=== PATIENT | female | born 1965 | race Caucasian/White ===

== ENCOUNTER 2018-10-09 09:02 | Emergency (ER) | payer OTHER, SELFPAY ==
[2018-10-09 09:04] VITALS: BP 145/82; PULSE 77; RESP 18; TEMP 36.3; O2SAT 100
--- NOTE | 2018-10-09 09:08 | ED_ITS ---
HPI - General Adult General Chief complaint: Wound/Laceration Stated complaint: Walked into glass wall,head wound Time Seen by Provider: 10/09/18 09:08 Source: patient Mode of arrival: ambulatory Limitations: no limitations History of Present Illness HPI narrative: 53-year-old female here for evaluation of a cut above her left eye. Just prior to arrival she walked into a glass window. She was wearing glasses. She thinks that the glasses cut her eye. She put ice on it prior to arrival. No other intervention. She is up-to-date on her tetanus. Related Data Allergies Allergy/AdvReac Type Severity Reaction Status Date / Time codeine Allergy Verified 10/09/18 09:15 amoxicillin [From Augmentin] AdvReac Intermediate Gastrointestinal Verified 10/09/18 09:15 Upset clavulanic acid AdvReac Intermediate Gastrointestinal Verified 10/09/18 09:15 [From Augmentin] Upset Review of Systems Constitutional Denies fever(s) and Denies headache(s) Eyes Denies blurry vision, Denies change in vision, Denies diplopia, Denies dry eyes and Denies eye pain ENT Ears, Nose, Mouth, and Throat: Denies headache(s) and Denies neck pain Respiratory Denies cough Musculoskeletal Denies neck pain Integumentary/Breasts Comments: 2 cm laceration above the left Neurologic Denies behavioral changes and Denies headache(s) Psychiatric Denies behavioral changes Hematologic/Lymphatic Denies easy bleeding and Denies easy bruising PFSH Medical History HTN (hypertension) (Acute) Social History lives independently: Yes Social History lives independently: Yes Exam Initial Vital Signs Initial Vital Signs: Vital Signs Temperature 97.4 F L 10/09/18 09:04 Pulse Rate 77 10/09/18 09:04 Respiratory Rate 18 10/09/18 09:04 Blood Pressure 145/82 H 10/09/18 09:04 Pulse Oximetry 100 10/09/18 09:04 Const General: cooperative, healthy appearing, comfortable, well developed, well g roomed and No acute distress Orientation: alert, awake and oriented x3 HENMT Head: other (2 cm laceration above the left) Nose: external nose normal Face and sinus: normal facial exam Mouth: oral mucosae normal Eyes Pupils: PERRL EOM: EOM intact bilaterally Resp Effort & Inspection: normal respiratory effort Skin Other: 2 cm laceration of the left eye. No active bleeding. Neuro General: alert, awake and oriented x3 Cognition: normal cognition Speech: speech normal Extrem General: normal to inspection and capillary refill normal Psych Appearance: grossly normal and well kempt Procedures Laceration Repair Laceration 1: Site: face Side (If applicable): left Size (cm): 2 Description: linear Depth: simple, single layer Local Anesthetic: lidocaine 1% and with bicarb Amount of anesthesia used (mL): 2 Pre-repair: wound explored and deep structures intact Skin layer closed with: other (Chromic) Size (cm): 5-0 Number of sutures: 6 Technique: simple, interrupted Course Vital Signs - 8 hr 10/09/18 09:04 Temperature 97.4 F L Pulse Rate 77 Respiratory Rate 18 Blood Pressure 145/82 H Pulse Oximetry 100 Medical Decision Making MDM Narrative Medical decision making narrative: The patient is up-to-date on tetanus. Has a very superficial laceration to the the left side of her eyebrow. We did discuss options to include not doing anything which would leave the biggest scar. We did discuss Dermabond and Steri-Strips or suturing. The patient opted for suturing. It was closed as described above. Will hold on any radiologic studies for now. Patient was given care instructions return precautions. She expressed understanding and agreement plan. Discharge Plan Departure Patient Disposition: Home Clinical Impression: Laceration Instructions: DI for Laceration Repair Activity Restrictions/Additional Instructions: The stitches do need to be removed in 7 days if they have not come out on their own by then. I do recommend you covering the stitches at night when you sleep to avoid rubbing them on your pillow. In 24 hr you can shower like normal. You can use soap and water like normal. Do not scrub the area. Return to the emergency department for any new or worsening symptoms.
[2018-10-09] MEDS: IBUPROFEN 400 MG TABLET PO (09:51)
== END 2018-10-09 09:55 | disposition home or self-care (01) ==
LOC: ED 10:09
PROVIDERS: Emergency Provider Emergency Medicine
DX: S01.112A Laceration without foreign body of left eyelid and periocular area, initial encounter (principal)
CPT/HCPCS: 12011; 99282; 99283